=== PATIENT | female | born 2000 | race Caucasian/White ===

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

== ENCOUNTER 2021-08-31 14:38 | Emergency (ER) | payer BC ==
--- NOTE | 2021-08-31 15:46 | CR ---
Indication: Trauma. Technique: Left foot 3 views. Comparison: None. Findings/Impression: Bones: The left 2nd toe is dislocated at the proximal IP joint. Bone alignment otherwise normal. Findings are suspicious for fracture in the base of the 2nd toe middle phalanx. No other osseous abnormality. Joint spaces: Unremarkable. Soft tissues: Unremarkable. Dictated by Jeevan Thmopson MD @ 08/31/2021 3:44:10 PM (Electronically Signed)
[2021-08-31] MEDS ORDERED: Bupivacaine 0.5% 10 ML SDV INJECT ONE (18:27)
--- NOTE | 2021-08-31 20:16 | CR ---
Indication: Fractured toe Technique: Three views of the left 2nd toe Comparison: Left foot radiographs 08/31/2021 Findings/Impression: Interval reduction of the 2nd proximal interphalangeal joint dislocation. Acute fracture involving the distal plantar cortical surface of the 2nd proximal phalanx with 2 mm displaced fracture fragment. Dictated by Rosamaria Betancourt MD @ 08/31/2021 8:14:04 PM (Electronically Signed)
--- NOTE | 2021-08-31 20:28 | EDM.PDOC ---
ED HPI GENERAL MEDICAL PROBLEM - General Chief Complaint: Lower Extremity Injury/Pain Stated Complaint: LT TOE PAIN Time Seen by Provider: 08/31/21 14:43 Source of Information: Reports: Patient History Limitations: Reports: No Limitations - History of Present Illness INITIAL COMMENTS - FREE TEXT/NARRATIVE: HISTORY AND PHYSICAL: History of present illness: Patient is a 21-year-old female who presents emergency room today with concern of toe injury of the left foot that occurred just prior to travel to the emergency room. 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 Patient states that she was supposed to pretend to be wrestling somebody in the commercial when they fell and landed on her foot. Patient states that she noticed her toe was crooked so came here to the emergency room. Patient denies any other resuscitative injury. Denies any head injury or loss of consciousness. Patient denies fever, chills, chest pain, shortness of breath, or cough. Denies headache, neck stiff ness, change in vision, syncope, or near syncope. Denies nausea, vomiting, abdominal pain, diarrhea, constipation, or dysuria. Has not noted any blood in urine or stool. Patient has been eating and drinking appropriately. Review of systems: As per history of present illness and below otherwise all systems reviewed and negative. Past medical history: As per history of present illness and as reviewed below otherwise noncontributory. Surgical history: As per history of present illness and as reviewed below otherwise noncontributory. Social history: See social history for further information Family history: As per history of present illness and as reviewed below otherwise noncontributory. Physical exam: General: Patient is alert, oriented, and in no acute distress. Patient sitting comfortably on exam table. HEENT: Atraumatic, normocephalic, pupils equal and reactive bilaterally, negative for conjunctival pallor or scleral icterus, mucous membranes moist, throat clear, neck supple, nontender, trachea midline. No drooling or trismus noted. No meningeal signs. No hot potato voice noted. Lungs: Clear to auscultation, breath sounds equal bilaterally, chest nontender. Heart: S1S2, regular rate and rhythm without overt murmur Abdomen: Soft, nondistended, nontender. Negative for masses or hepa tosplenomegaly. Negative for costovertebral tenderness. Pelvis: Stable nontender. Genitourinary: Deferred. Rectal: Deferred. Skin: Intact, warm, dry. No lesions or rashes noted. Extremities: The left foot second toe appears to be dislocated laterally. Patient does have full range of motion of the remainder left lower extremity. Dorsalis pedis posterior tibial pulses are grossly intact of the left lower extremity with capillary refill less than 2 seconds. All compartments soft of the left lower extremity. Atraumatic, negative for cords or calf pain. Neurovascular unremarkable. Neuro: Awake, alert, oriented. Cranial nerves II through XII unremarkable. Cerebellum unremarkable. Motor and sensory unremarkable throughout. Exam nonfocal. Medical Decision Making: Signs and symptoms that were prompt return to the ED thoroughly discussed with patient. Discussed importance for follow-up with a podiatry provider. Voices understanding and is agreeable to plan of care. Denies any further quest ions or concerns at this time. Diagnostics: Foot x-ray Therapeutics: Digital block, joint reduction, crutches, postop shoe, enrique tape Prescription: None Impression: Toe dislocation, left, second digit Acute fracture of proximal phalanx of toe, left, second digit Plan: 1. Rest, ice, elevate the affected extremity. You can apply ice 15 minutes on, 15 minutes off. Use the postop shoe and crutches as directed until follow-up with a purchasing administrative assistant as discussed. 2. Tylenol and/or Ibuprofen as directed for pain management or discomfort. 3. Follow up with the podiatry provider as discussed. Return to the ED as needed and as discussed. Definitive disposition and diagnosis as appropriate pending reevaluation and review of above. 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 Musculoskeletal History: Reports: None Neurological History: Reports: None Psychiatric History: Reports: None Endocrine/Metabolic History: Reports: None Hematologic History: Reports: None Oncologic (Cancer) History: Reports: None Dermatologic History: Reports: None - Infectious Disease History Infectious Disease History: Reports: None - Past Surgical History HEENT Surgical History: Reports: Oral Surgery Social & Family History - Family History Family Medical History: No Pertinent Family History - Tobacco Use Tobacco Use Status *Q: Never Tobacco User - Caffeine Use Caffeine Use: Reports: Coffee, Energy Drinks, Soda, Tea - Recreational Drug Use Recreational Drug Use: No Review of Systems - Review of Systems Review Of Systems: Comprehensive ROS is negative, except as noted in HPI. ED EXAM, GENERAL - Physical Exam Exam: See Below (see dictation) ED TRAUMA EXTREMITY PROCEDURES - Joint Reduction Left Toes Sedation: Digital Block Local Anesthesia - Lidocaine (Xylocaine): 1% Plain Local Anesthesia - Bupivicaine (Marcaine): 0.5% Plain Local Anesthetic Volume: 3cc Pre-Procedure NV Status: Normal Post-Procedure NV Status: Normal Technique: Traction/Counter Traction Number of Attempts: 1 Post-Reduction Imaging: Completely Reduced, Fracture Seen Joint Reduction Complications: No Course - Vital Signs Last Recorded V/S: Last Vital Signs Temp 97.8 F 08/31/21 18:40 Pulse 78 08/31/21 20:50 Resp 16 08/31/21 18:40 BP 138/72 08/31/21 20:50 Pulse Ox 99 08/31/21 18:40 - Orders/Labs/Meds Orders: Active Orders 24 hr Category Date Time Status DME for Discharge [COMM] Stat Oth 08/31/21 20:26 Ordered Meds: Medications Discontinued Medications Generic Name Dose Route Start Last Admin Trade Name Annabelle PRN Reason Stop Dose Admin Bupivacaine HCl 10 ml 08/31/21 18:27 08/31/21 18:35 Bupivacaine 0.5% 10 Ml Sdv INJECT 08/31/21 18:28 10 ml ONETIME ONE Administration Lidocaine HCl 5 ml 08/31/21 18:27 08/31/21 18:35 Lidocaine 1% 5 Ml Sdv INJECT 08/31/21 18:28 5 ml ONETIME ONE Administration Departure - Departure Time of Disposition: 20:27 Disposition: Home, Self-Care 01 Clinical Impression: Toe dislocation, Fracture of proximal phalanx of toe - Discharge Information Referrals: Jenny Corbin [employer]IST [Primary Care Provider] - Forms: ED Department Discharge Additional Instructions: The following information is given to patients seen in the emergency department who are being discharged to home. This information is to outline your options for follow-up care. We provide all patients seen in our emergency department with a follow-up referral. The need for follow-up, as well as the timing and circumstances, are variable depending upon the specifics of your emergency department visit. If you don't have a primary care physician on staff, we will provide you with a referral. We always advise you to contact your personal physician following an emergency department visit to inform them of the circumstance of the visit and for follow-up with them and/or the need for any referrals to a consulting speci alist. The emergency department will also refer you to a specialist when appropriate. This referral assures that you have the opportunity for follow-up care with a specialist. All of these measure are taken in an effort to provide you with optimal care, which includes your follow-up. Under all circumstances we always encourage you to contact your private physician who remains a resource for coordinating your care. When calling for follow-up care, please make the office aware that this follow-up is from your recent emergency room visit. If for any reason you are refused follow-up, please contact the [facility] Emergency Department at and asked to speak to the emergency department charge nurse. [facility] [address] [place] [address] [address] [facility], Dr. Lisa, Podiatry [address] [place] [id number] 1. Rest, ice, elevate the affected extremity. You can apply ice 15 minutes on, 15 minutes off. Use the postop shoe and crutches as directed until follow-up with a purchasing administrative assistant as discussed. 2. Tylenol and/or Ibuprofen as directed for pain management or discomfort. 3. Follow up with the podiatry provider as discussed. Return to the ED as needed and as discussed. Sepsis Event Note (ED) - Evaluation Sepsis Screening Result: No Definite Risk - Focused Exam Vital Signs: Vital Signs Temp Pulse Resp BP Pulse Ox 08/31/21 20:50 78 138/72 08/31/21 18:40 97.8 F 87 16 147/77 H 99 - My Orders Last 24 Hours: My Active Orders 08/31/21 20:26 DME for Discharge [COMM] Stat - Assessment/Plan Last 24 Hours: My Active Orders 08/31/21 20:26 DME for Discharge [COMM] Stat
[2021-08-31 20:50] VITALS: BP 138/72; PULSE 78
== END 2021-08-31 20:50 | disposition home or self-care (01) ==
LOC: MW.ED 14:38
DX: S92.512A Displaced fracture of proximal phalanx of left lesser toe(s), initial encounter for closed fracture (principal); J45.909 Unspecified asthma, uncomplicated; W50.0XXA Accidental hit or strike by another person, initial encounter; Y93.72 Activity, wrestling
CPT/HCPCS: 28660; 73630; 73660; 99283; J3490